=== PATIENT | female | born 1940 | race Caucasian/White ===

== ENCOUNTER → 2019-01-12 | Outpatient (CLI) | payer OTHER ==
[~2019-01-12] VITALS: Ht 160 cm; Wt 111.6 kg
[~2019-01-12] MED LIST: ALLEGRA ALLERGY60 MG PO; AMLODIPINE BESY10 MG PO; ASPIR 8181 MG PO; CALCIUM 600 +1 EAC1 PO; CELEXA40 MG PO; CENTRUM SILVER1 EAC4 PO; CLONIDINE HCL0.1 MG PO; FISH OIL 1,001000 M2 PO; HYDROCHLOROTHIA25 M2 PO; KETOCONAZOLE15 GM TOP; LIPITOR40 MG PO; LISINOPRIL40 MG PO; NAPROSYN500 MG PO; NYSTATIN15 G3 TOP; OSTEO BI-FLEX1 EAC3 PO; PROTONIX40 M1 PO; SINGULAIR 10 MG10 M1 PO; SYMBICORT160 MCG/4. INH; TOPROL XL100 MG PO; VALACYCLOVIR1000 MG PO; VENTOLIN HFA 1818 GM INH; ZANTAC 150MG T150 M1 PO
--- NOTE | ~2019-01-12 | P ---
[facility] [place] [address] PROCEDURE REPORT Name: JN RAMOS Room #: REG [facility]#: [id number] Admission: 01/12/19 ������������������ Attend Phys: Andrei Quintero Discharge: ������������������ Date of : 36 Report #: [id number] THIS REPORT FOR: //name// CC: Andrei Barney DATE OF SERVICE: 01/12/2019 PROCEDURE PERFORMED: Upper endoscopy with biopsies and esophageal dilation. HISTORY OF PRESENT ILLNESS: The patient is an 78-year-old female with gastroesophageal reflux disease, was originally on Zantac on a daily basis for quite some time, but then having increased heartburn symptoms, was started on Protonix as well last month and now reports significant improvement in her symptoms. She does report dysphagia at times. DESCRIPTION OF PROCEDURE: The risks and benefits of the procedure were explained to the patient, those risks including but not limited to bleeding, perforation, the risk of sedation. She understood these risks and gave informed consent. Sedation was given using propofol per anesthesia. Next, using a standard Olympus upper endoscope, the scope was placed in the patient's mouth and advanced under direct vision through the esophagus, stomach and into the second portion of the duodenum. The larynx and upper and mid esophagus were normal. In the distal esophagus, no esophagitis was noted; however, there was a mild narrowing at the GE junction. Upon entering the stomach, a medium-sized hiatal hernia was noted. Overall, the gastric mucosa was normal in the body. There was some mild gastritis noted in the fundus and the antrum. Biopsies were obtained. No evidence of ulcerations or bleeding. The pylorus was normal and patent. The duodenal bulb, first and second portion were normal. The scope was then brought back up into the patient's stomach and a Savary guidewire was inserted through the scope, leaving the guidewire in place as the scope was then withdrawn. Next, a 51-Lao Savary dilation of the esophagus was then performed without difficulty. The wire and dilator were removed. The scope was reintroduced into the patient's stomach. There was no evidence of mucosal tear after dilation. The scope was then withdrawn and the procedure terminated. The patient tolerated the procedure well. IMPRESSION: 1. Mild narrowing gastroesophageal junction, status post dilation. 2. Medium size hiatal hernia. 3. Mild gastritis. 4. Otherwise, normal upper endoscopy. RECOMMENDATIONS: 1. Await biopsy results. [address] [address] PROCEDURE REPORT Name: JN RAMOS Room #: REG [facility]#: [id number] Admission: 01/12/19 ������������������ Attend Phys: Andrei Quintero Discharge: ������������������ Date of : 36 Report #: [id number] 2. Observe the patient post-dilation. 3. Would recommend continuing daily PPI, long-term and discontinuing Zantac. Thank you for allowing me to participate in her care. ��������������������������������������������� ���������������������������������������� By: ��������������������������������������������� [id number] Andrei Thomas, /sherlyn
--- NOTE | 2019-01-13 16:06 | PATH ---
[facility] [address] [place] [address] PATHOLOGY RPT PROCEDURE Name: MILAGRO HADLEY [facility] [id number] ������������������ Admission: 01/12/19 ������������������ Date of : 36 Discharge: Report #: [id number] Path Case #: [id number] [facility] Accession Number: [id number] . 01 Material submitted: . stomach - BX GASTRITIS . 01 Clinical history: . Pre-OP DX: Reflux Post-OP DX: Gastritis, hiatal hernia . 02 Diagnosis: Gastric mucosa, gastritis, endoscopic biopsy: - Mild reactive gastropathy. - Negative for intestinal metaplasia or atrophy. - Negative for Helicobacter pylori (properly controlled immunohistochemical stain performed). (IUV:dio; 01/13/2019) QMS 01/13/2019 1349 Local . 02 Electronically signed: . Klaudia Garrett MD, Pathologist NPI- [id number] . 01 Gross description: . Received in formalin labeled "Milagro Hadley, BX gastritis, rule out H. pylori," are 3 segments of mckeon soft tissue measuring 0.9 x 0.8 x 0.2 cm in aggregate dimensions and ranging from 0.3 to 0.4 cm in maximum dimension. The specimen is submitted entirely in cassette A1. (TSD; 01/12/2019) TOB/TOB 01/12/2019 2316 Local . 02 Pathologist provided ICD-10: K31.9 . 02 CPT . 175906, [id number] Specimen Comment: A courtesy copy of this report has been sent to Specimen Comment: [phone], . Specimen Comment: Report sent to / DR HAYWOOD Performed at: [address] [id number] MD Tramaine Molina MD Phone: [phone] Performed at: [address] [id number] [address] [address] PATHOLOGY RPT PROCEDURE Name: MILAGRO HADLEY Room #: REG [facility]#: [id number] ������������������ Admission: 01/12/19 ������������������ Date of : 36 Discharge: Report #: [id number] Path Case #: [id number] MD Klaudia Garrett MD Phone: [phone]
== END | disposition home or self-care (01) ==
LOC: GI 08:48
DX: K21.9 Gastro-esophageal reflux disease without esophagitis (principal); K31.9 Disease of stomach and duodenum, unspecified; K22.2 Esophageal obstruction; K44.9 Diaphragmatic hernia without obstruction or gangrene; I10 Essential (primary) hypertension; E78.5 Hyperlipidemia, unspecified; J45.909 Unspecified asthma, uncomplicated; F32.9 Major depressive disorder, single episode, unspecified; Z87.891 Personal history of nicotine dependence; Z90.49 Acquired absence of other specified parts of digestive tract; Z96.651 Presence of right artificial knee joint; Z98.41 Cataract extraction status, right eye; Z98.42 Cataract extraction status, left eye; Z98.890 Other specified postprocedural states; Z90.710 Acquired absence of both cervix and uterus; Z88.0 Allergy status to penicillin; Z88.2 Allergy status to sulfonamides; Z79.82 Long term (current) use of aspirin; Z79.899 Other long term (current) drug therapy
CPT/HCPCS: 62110; 62900